=== PATIENT | female | born 1975 | race Caucasian/White ===

== ENCOUNTER 2021-07-31 02:03 | Emergency (ER) | payer MEDICAID ==
[~2021-07-31] VITALS: Ht 165.1 cm; Wt 61.0 kg
[2021-07-31] MEDS ORDERED: TRAMADOL 50MG TABLET PO ONE (02:30)
[2021-07-31] MEDS ORDERED: ACETAMINOPHEN 325MG TABLET PO ONE (02:30)
[2021-07-31 06:14] VITALS: BP 145/80
== END 2021-07-31 06:16 | disposition home or self-care (01) ==
LOC: ER 02:03
DX: S00.83XA Contusion of other part of head, initial encounter (principal); W22.8XXA Striking against or struck by other objects, initial encounter; Y93.89 Activity, other specified; Y92.39 Other specified sports and athletic area as the place of occurrence of the external cause; Y99.8 Other external cause status
CPT/HCPCS: 99283